=== PATIENT | male | born 1960 | race Two or more races ===

== ENCOUNTER 2018-04-20 18:38 | Emergency (ER) | payer OTHER ==
[~2018-04-20] VITALS: Ht 175.3 cm; Wt 104.3 kg
[2018-04-20] MEDS ORDERED: ATACAND4 MG (19:02)
[2018-04-20] MEDS ORDERED: DITROPAN5 MG (19:03)
[2018-04-20] MEDS ORDERED: CRESTOR5 MG (19:03)
[2018-04-20] MEDS ORDERED: METFORMIN HCL500 MG (19:03)
[2018-04-20] MEDS ORDERED: COREG CR10 MG (19:03)
[2018-04-20] MEDS ORDERED: SYNTHROID50 MCG (19:03)
== END 2018-04-21 02:09 | disposition home or self-care (01) ==
LOC: ER 18:38
DX: K52.89 Other specified noninfective gastroenteritis and colitis (principal)